=== PATIENT | male | born 1975 | race African-American/Black ===

== ENCOUNTER 2019-09-06 09:18 | Emergency (ER) | payer SELFPAY ==
[2019-09-06] MEDS ORDERED: cefTRIAXone\\ROCEPHIN 1 GM VIAL ONE (10:13)
[2019-09-06] MEDS ORDERED: HYDROcodone/Acetaminophen 10/325 mg Tablet ONE (10:13)
[2019-09-06] MEDS ORDERED: Sterile Water 0 ML ONE (10:14)
[2019-09-06] MEDS ORDERED: Sterile Water 100 ML ONE (10:14)
[2019-09-06] MEDS ORDERED: Lidocaine 1% PF 5 ML VIAL ONE (10:15)
== END 2019-09-06 10:46 | disposition home or self-care (01) ==
LOC: BURERS 09:18
DX: T81.41XA Infection following a procedure, superficial incisional surgical site, initial encounter (principal)
CPT/HCPCS: 96372; 99282; J0696; J2001